=== PATIENT | male | born 1985 | race Caucasian/White ===

== ENCOUNTER 2019-06-12 20:41 | Emergency (ER) | payer MEDICAID ==
[~2019-06-12] VITALS: Ht 172.7 cm; Wt 77.3 kg
[2019-06-12 20:53] VITALS: Ht 172.7 cm; Wt 77.3 kg
[2019-06-12 21:12] LABS: BASOPHILS 0.2 % (0-2); EOSINOPHILS 1.6 % (0-7); HEMOGLOBIN 13.9 g/dL (13.5-17.5); IMMATURE GRANULOCYTES 0.3 % (0-5); LYMPHOCYTES 25.4 % (15-50); MCH 31.4 pg (26.0-34.0); MCHC 33.1 g/dL (31.0-37.0); MCV 94.8 fL (80.0-100.0); MEAN PLATELET VOLUME 8.1 fL (7.4-10.4); MONOCYTES 7.2 % (2-11); NEUTROPHILS 65.3 % (40-80); PLATELET COUNT 261 10x3/uL (130-400); RBC 4.43 10x6/uL (4.20-6.10); RDW 12.3 % (11.5-14.5)
[2019-06-12 21:20] LABS: CALC OSMOLALITY 268 mosm/kg (275-300); CALCIUM 9.7 mg/dL (8.5-10.1); CARBON DIOXIDE 25.6 mmol/L (21.0-32.0); CHLORIDE - SERUM 98 mmol/L (98-107); GLUCOSE 109 mg/dL (74-106); POTASSIUM - SERUM 3.4 mmol/L (3.5-5.1); SODIUM 135 mmol/L (136-145); UREA NITROGEN 8 mg/dL (7-18); eGFR NON AFRICAN AMERICAN > 90 mL/min (90-120)
[2019-06-12 21:29] LABS: ALBUMIN 4.5 g/dL (3.4-5.0); ALKALINE PHOSPHATASE 71 U/L (30-120); ALT (SGPT) 69 U/L (10-68); AMYLASE - SERUM 60 U/L (25-115); BILIRUBIN - TOTAL 0.47 mg/dL (0.2-1.3); LIPASE 177 U/L (73-393); TROPONIN-I < 0.017 ng/mL (0.000-0.060)
[2019-06-12 21:46] LABS: BILIRUBIN NEGATIVE (NEGATIVE); GLUCOSE NEGATIVE (NEGATIVE); KETONE NEGATIVE (NEGATIVE); NITRITE NEGATIVE (NEGATIVE); UROBILINOGEN NORMAL (NORMAL)
[2019-06-12] MEDS ORDERED: MIRALAX17 GM PO (22:07)
[2019-06-12 22:54] VITALS: BP 148/93
== END 2019-06-12 22:57 | disposition home or self-care (01) ==
LOC: D.ER 20:41
PROVIDERS: Emergency Medicine
DX: K59.00 Constipation, unspecified (principal)